=== PATIENT | male | born 1985 | race Two or more races ===

== ENCOUNTER 2024-06-02 00:16 | Emergency (ER) | payer MEDICAID, SELFPAY ==
[2024-06-02 00:16] VITALS: BMI 31.5
[2024-06-02 00:27] VITALS: BP 154/114; BP 175/114; PULSE 65; RESP 18; TEMP 36.4; O2SAT 95
--- NOTE | 2024-06-02 00:42 | EDNOTE_ITS ---
ED Dental RME/HPI General Chief complaint: Dental/Oral/Throat Stated complaint: TOOTHACHE Time Seen by Provider: 06/02/24 00:32 Arrival date/time: 06/02/24 00:16 This is a 38-year-old male that comes in with complaints of tooth pain to the right upper jaw. Patient states that he supposed to see a dentist but has still not gone. Patient reports that he will make an appointment this week. Patient also complains of mild right-sided facial swelling. Patient denies any past medical history. Related Data Previous Rx's ?Medication ?Instructions ?Recorded azithromycin 250 mg tablet See Rx Instructions PO .COMPLEX #6 05/29/22 (Zithromax) tabs amoxicillin 875 mg-potassium 1 tab PO BID #14 tabs 06/02/24 clavulanate 125 mg tablet ibuprofen 800 mg tablet 800 mg PO Q6H PRN pain #20 tabs 06/02/24 Allergies Allergy/AdvReac Type Severity Reaction Status Date / Time No Known Allergies Allergy Verified 07/04/21 08:31 Review of Systems Review of Systems Systems Reviewed: All systems reviewed, normal except as documented Past Medical History Past Medical History CARDIAC: Positive Hypercholesterolemia; Negative Cardiac Disorders or Congestive Heart Failure RESPIRATORY: Negative Chronic Obstructive Pulmonary Disease (COPD) or Asthma GENITOURINARY: Negative Renal Disease ENDOCRINE: Negative Diabetes Mellitus Type 1 or Diabetes Mellitus Type 2 HEMATOLOGIC: Negative Sickle Cell Disease Social History SMOKING STATUS: Never smoker ED Exam General General appearance: Present alert and in no apparent distress Head Head exam: Present atraumatic Eye Eye exam: Present normal appearance, PERRL and EOMI ENT ENT exam: Present mucous membranes moist and other (Mild right-sided facial swelling) Neck Neck exam: Present normal inspection, full ROM and trachea midline Chest Chest inspection: Present normal inspection and symmetric chest wall rise Respiratory Respiratory exam: Present normal lung sounds bilaterally Cardiovascular Cardiovascular exam: Present regular rate and normal rhythm Abdominal Exam Abdominal exam: Present soft Extremities Exam Extremities exam: Present normal inspection and full ROM Back Exam Back exam: Present normal inspection and full ROM Neurological Exam Neurological exam: Present alert, oriented X3 and CN II-XII intact Psychiatric Psychiatric exam: Present normal affect and normal mood Skin Skin exam: Present warm, dry, intact and normal color Course Quality Measures none Orders Category Date Time Status Amoxicillin/Pot Clav 875 [Augmentin 875] Med 06/02/24 00:41 Discontinued 1 tab PO X1 ONE HYDROcodone*/APAP 5/325 [[place] 5/325] Med 06/02/24 00:41 Discontinued 2 tab PO X1 ONE Ibuprofen Tab [Motrin Tab] Med 06/02/24 00:41 Discontinued 800 mg PO X1 ONE Vital Signs Vital signs: Vital Signs Temperature 97.6 F 06/02/24 00:27 Pulse Rate 65 06/02/24 00:27 Respiratory Rate 18 06/02/24 00:27 Blood Pressure 175/114 H 06/02/24 00:27 Pulse Oximetry (%) 95 06/02/24 00:27 Oxygen Delivery Method Room Air 06/02/24 00:27 Dental / Oral MDM Narrative MDM Narrative:: Will treat patient for cellulitis. Patient given a dose of Augmentin. Patient also given a dose of ibuprofen and [place]. Patient told to follow-up with dentist. Come back to the emergency room if symptoms change or worsen. Patient data External records reviewed:: [facility] previous records Clinical information provided by:: patient Social determinants that could affect healthcare access:: none Patient has the following chronic illnesses:: None How is presenting disease/condition affected by chronic disease/condition?: no chronic disease Evaluation data The following diagnostics were reviewed and interpreted by me:: other (specify) (None) Lab and/or radiology exams considered but not ordered:: None Interpretation Summary: n/a Medications / Prescriptions Medications or Prescriptions considered but not ordered:: None Medication administrations:: Medication Administration History Discontinued Medications Hydrocodone Bitart/Acetaminophen (Hydrocodone/Apap 5/325 Tablet) 2 tab PO X1 ONE Stop: 06/02/24 00:42 Last Admin: 06/02/24 00:53 Dose: 2 tab Documented By: STEVE Amoxicillin/Clavulanate Potassium (Amoxicillin/Pot Clav 875 Tablet) 1 tab PO X1 ONE Stop: 06/02/24 00:42 Last Admin: 06/02/24 00:53 Dose: 1 tab Documented By: STEVE Ibuprofen (Ibuprofen Tab 400 Mg Tablet) 800 mg PO X1 ONE Stop: 06/02/24 00:42 Last Admin: 06/02/24 00:50 Dose: 800 mg Documented By: STEVE Seeing mar Consultations Consultation(s) initiated? (list below): No Diagnosis Most likely diagnosis given after review of the tests above:: Cellulitis versus early abscess Admission Indicated Admission indicated?: not indicated Admission Request Was there a request for admission?: No Disposition Plan Disposition Plan: Discharge Discharge Attestation Discharge Attestation: The patient and all family members were given an opportunity to ask questions and understood the discharge instructions. Discharge instructions specifically effects, indications for sooner follow up or return to the emergency department, and the expected course of current diagnosis. Patient condition: Stable Discharge Plan Plan Patient Disposition: HOME (Self Care) Patient condition on transfer: Stable Prescriptions/Referrals Prescriptions/Med Rec: New amoxicillin-pot clavulanate 875-125 mg tablet 1 tab PO BID Qty: 14 0RF ibuprofen 800 mg tablet 800 mg PO Q6H PRN (Reason: pain) Qty: 20 0RF No Action azithromycin [Zithromax] 250 mg tablet See Rx Instructions .ROUTE .COMPLEX Qty: 6 0RF Rx Instructions: For 250 mg dose pack: take 500 mg today (day 1), then 250 mg for 4 days (days 2-5) Problem List Clinical Impression: Cellulitis, Toothache Patient/Caregiver Discharge Instructions Discharge Activity: activity as tolerated Education Materials: ED Cellulitis, ED Dental Pain Additional Instructions: Follow up with primary provider in 1-2 days. Come back to ED if symptoms change or worsen. Please make appointment with dentist. Print Language: [place] Island[place] Stand Alone Forms: Isabel Award Info., Patient Portal Info Letter PA/CLOTH WINDER Supervising Physician DEVORAH/TONIO Supervising Physician: ciaran
[2024-06-02] MEDS: IBUPROFEN TAB 400 MG TABLET 800 MG PO (00:50)
[2024-06-02] MEDS: HYDROcodone/APAP 5/325 TABLET 2 TAB PO (00:53)
[2024-06-02] MEDS: AMOXICILLIN/POT CLAV 875 TABLET 1 TAB PO (00:53)
== END 2024-06-02 01:27 | disposition home or self-care (01) ==
LOC: SERX 01:26
PROVIDERS: Emergency Provider Emergency Medicine; PCP Nurse Practitioner Family
DX: K08.89 Other specified disorders of teeth and supporting structures (principal); L03.211 Cellulitis of face
CPT/HCPCS: 99283; A9270

== ENCOUNTER 2024-06-14 00:58 | Emergency (ER) | payer MEDICAID, SELFPAY ==
[2024-06-14 00:59] VITALS: BMI 32.5
[2024-06-14 01:16] VITALS: BP 155/96; PULSE 80; RESP 20; TEMP 36.8; O2SAT 99
[2024-06-14 01:32] VITALS: BP 155/96; PULSE 80
[2024-06-14] MEDS: cloNIDine HCL 0.1 MG TABLET PO (01:32)
[2024-06-14] MEDS: ACETAMINOPHEN 500 MG TABLET 1000 MG PO (01:32)
--- NOTE | 2024-06-14 01:38 | PD.EDHA ---
ED Headache RME/HPI General Chief Complaint: Headache Stated Complaint: HEADACHE, DIZZY, BP HIGH Time Seen by Provider: 06/14/24 01:26 Source: patient Arrival date/time: 06/14/24 00:58 38-year-old male with no known medical history presents to the emergency room with a chief complaint of headache, lightheadedness, body aches and fatigue x 1 day Mode of arrival: ambulatory Limitations: no limitations Related Data Previous Rx's ?Medication ?Instructions ?Recorded azithromycin 250 mg tablet See Rx Instructions PO .COMPLEX #6 05/29/22 (Zithromax) tabs amoxicillin 875 mg-potassium 1 tab PO BID #14 tabs 06/02/24 clavulanate 125 mg tablet ibuprofen 800 mg tablet 800 mg PO Q6H PRN pain #20 tabs 06/02/24 Allergies Allergy/AdvReac Type Severity Reaction Status Date / Time No Known Allergies Allergy Verified 07/04/21 08:31 Review of Systems Review of Systems Systems Reviewed: All systems reviewed, normal except as documented Constitutional Constitutional: Reports system reviewed and no additional complaints, except as documented, Reports fatigue, Denies fever(s), Reports headache(s) and Reports weakness Eyes Eyes: Reports system reviewed and no additional complaints, except as documented, Denies blurry vision and Denies change in vision ENT Ears, Nose, Mouth, and Throat: Reports system reviewed and no additional complaints, except as documented, Denies otalgia, Reports headache(s), Reports nasal congestion, Denies throat swelling and Denies vertigo Cardiovascular Cardiovascular: Reports system reviewed and no additional complaints, except as documented, Denies chest pain, Denies dyspnea and Denies dyspnea on exertion Respiratory Respiratory: Reports system reviewed and no additional complaints, except as documented, Reports chest congestion, Reports cough, Denies dyspnea, Denies dyspnea on exertion and Denies wheezing Gastrointestinal Gastrointestinal: Reports system reviewed and no additional complaints, except as documented, Denies abdominal pain, Denies cramping, Denies nausea and Denies vomiting Genitourinary Genitourinary: Reports system reviewed and no additional complaints, except as documented, Denies dysuria and Denies hematuria Musculoskeletal Musculoskeletal: Reports system reviewed and no additional complaints, except as documented and Denies back pain Integumentary/Breasts Skin/Breast: Reports system reviewed and no additional complaints, except as documented and Denies wounds Neurologic Neurologic: Reports system reviewed and no additional complaints, except as documented, Denies confusion, Reports headache(s), Denies lack of coordination, Denies vertigo and Reports weakness Psychiatric Psychiatric: Reports system reviewed and no additional complaints, except as documented, Denies anxiety, Denies confusion, Denies depression, Denies paranoia, Denies suicidal ideation and Denies tactile hallucinations Endocrine Endocrine: Reports system reviewed and no additional complaints, except as documented and Reports fatigue Hematologic/Lymphatic Hematologic/Lymphatic: Reports system reviewed and no additional complaints, except as documented and Denies lymphadenopathy Allergic/Immunologic Allergic/Immunologic: Reports system reviewed and no additional complaints, except as documented, Denies throat swelling, Denies urticaria and Denies wheezing Past Medical History Past Medical History CARDIAC: Positive Hypercholesterolemia; Negative Cardiac Disorders or Congestive Heart Failure RESPIRATORY: Negative Chronic Obstructive Pulmonary Disease (COPD) or Asthma GENITOURINARY: Negative Renal Disease ENDOCRINE: Negative Diabetes Mellitus Type 1 or Diabetes Mellitus Type 2 HEMATOLOGIC: Negative Sickle Cell Disease Social History SMOKING STATUS: Never smoker ED Exam General Limitations: Present no limitations General appearance: Present alert and in no apparent distress Head Head exam: Present atraumatic Eye Eye exam: Present normal appearance, PERRL and EOMI ENT ENT exam: Present normal exam, normal oropharynx and mucous membranes moist Neck Neck exam: Present normal inspection, full ROM and trachea midline Chest Chest inspection: Present normal inspection and symmetric chest wall rise Respiratory Respiratory exam: Present normal lung sounds bilaterally; Absent respiratory distress, wheezes, stridor, accessory muscle use or prolonged expiratory phase Cardiovascular Cardiovascular exam: Present regular rate, normal rhythm and normal heart sounds Abdominal Exam Abdominal exam: Present soft and normal bowel sounds Extremities Exam Extremities exam: Present normal inspection and full ROM Back Exam Back exam: Present normal inspection and full ROM Neurological Exam Neurological exam: Present alert, oriented X3 and CN II-XII intact Psychiatric Psychiatric exam: Present normal affect and normal mood Skin Skin exam: Present warm, dry, intact and normal color Course Quality Measures none Orders Category Date Time Status Bedside COVID-19 Antigen Test NOW Care 06/14/24 01:25 Completed Bedside Influenza A&B Antigen Test NOW Care 06/14/24 01:25 Completed Acetaminophen Tab [Tylenol ES Tab] Med 06/14/24 01:25 Discontinued 1,000 mg PO X1 ONE cloNIDine HCL [Catapres] Med 06/14/24 01:26 Discontinued 0.1 mg PO X1 ONE Vital Signs Vital signs: Vital Signs Temperature 98.2 F 06/14/24 01:16 Pulse Rate 80 06/14/24 01:16 Respiratory Rate 20 06/14/24 01:16 Blood Pressure 155/96 H 06/14/24 01:16 Pulse Oximetry (%) 99 06/14/24 01:16 Oxygen Delivery Method Room Air 06/14/24 01:16 O2 saturation 99% within normal limits Headache MDM Narrative MDM Narrative:: 38-year-old male with no known medical history presents to the emergency room with a chief complaint of headache, lightheadedness, body aches and fatigue x 1 day clinically the patient appears nontoxic and in no apparent distress. Physical examination shows clear bilateral lung sounds with no wheezing stridor or respiratory distress. The patient is currently afebrile and is complaining of bodyaches. Influenza A and COVID-19 test were completed and the patient tested positive for influenza A. Patient eloped prior to final disposition Patient data External records reviewed:: [facility] previous records Clinical information provided by:: patient Social determinants that could affect healthcare access:: none Patient has the following chronic illnesses:: No chronic illness How is presenting disease/condition affected by chronic disease/condition?: no chronic disease Evaluation data The following diagnostics were reviewed and interpreted by me:: lab results and radiology exam(s) Lab and/or radiology exams considered but not ordered:: Labs and radiology exams considered and ordered Interpretation Summary: N/A Medications / Prescriptions Medications or Prescriptions considered but not ordered:: Medication given Medication administrations:: Medication Administration History Discontinued Medications Acetaminophen (Acetaminophen 500 Mg Tablet) 1,000 mg PO X1 ONE Stop: 06/14/24 01:26 Last Admin: 06/14/24 01:32 Dose: 1,000 mg Documented By: OA Clonidine (Clonidine Hcl 0.1 Mg Tablet) 0.1 mg PO X1 ONE Stop: 06/14/24 01:27 Last Admin: 06/14/24 01:32 Dose: 0.1 mg Documented By: OA Medication given Consultations Consultation(s) initiated? (list below): No Diagnosis Differential diagnosis headache: migraine, tension headache and other (Influenza/COVID-19/upper respiratory infection) Most likely diagnosis given after review of the tests above:: Influenza A Admission Indicated Admission indicated?: not indicated Admission Request Was there a request for admission?: No Disposition Plan Disposition Plan: Discharge Discharge Attestation Discharge Attestation: The patient and all family members were given an opportunity to ask questions and understood the discharge instructions. Discharge instructions specifically effects, indications for sooner follow up or return to the emergency department, and the expected course of current diagnosis. Patient condition: Stable Discharge Plan Plan Patient Disposition: Elopement Disposition Comment: Stable Prescriptions/Referrals Prescriptions/Med Rec: No Action azithromycin [Zithromax] 250 mg tablet See Rx Instructions .ROUTE .COMPLEX Qty: 6 0RF Rx Instructions: For 250 mg dose pack: take 500 mg today (day 1), then 250 mg for 4 days (days 2-5) amoxicillin-pot clavulanate 875-125 mg tablet 1 tab PO BID Qty: 14 0RF ibuprofen 800 mg tablet 800 mg PO Q6H PRN (Reason: pain) Qty: 20 0RF Referrals: No Primary/Family,Physician [Primary Care Provider] - In 1 week Problem List Clinical Impression: Influenza A Patient/Caregiver Discharge Instructions Education Materials: ED Influenza (Adult) Print Language: Filipino PA/POST MANAGER Supervising Physician PA/POST MANAGER Supervising Physician: Dr Saeed
--- NOTE | 2024-06-14 01:51 | PC.NURSE ---
PT WALKED OUT AND LEFT AFTER BEING TOLD WAS FLU POSITIVE
== END 2024-06-14 01:46 | disposition left against medical advice (07) ==
LOC: SERX 02:32
PROVIDERS: Emergency Provider Emergency Medicine
DX: J10.1 Influenza due to other identified influenza virus with other respiratory manifestations (principal)
CPT/HCPCS: 87400; 87811; 99283; A9270

== ENCOUNTER → 2024-08-04 | Outpatient (CLI) | payer MEDICAID, SELFPAY ==
--- NOTE | 2024-08-04 17:14 | XR_ITS ---
Examination: CT brain head with intravenous contrast. 2-D sagittal reconstructions. 2-D coronal reconstructions. Date and time of exam:August 04, 2024 0633 hrs. Indications: Generalized tic disorder CTDI: vol (mGy): 53.1 DLP: (mGycm):1104 Technique: Axial sections of the brain have been obtained. 5 mm slice thickness images have been obtained. Intravenous contrast material has not been administered. Low dose protocols were performed. One or more of the following dose reduction techniques were used; automated exposure control, adjustment of the mA and/or KV according to patient size, use of iterative reconstruction technique. Findings: Ventricles normal size and configuration No mass effect upon the ventricular system Fourth ventricle midline No abnormal enhancing cerebellar or cerebral lesions Cranial vault intact Impression: Negative for acute hemorrhage mass effect or midline shift No abnormal enhancing cerebellar or cerebral lesions
== END | disposition home or self-care (01) ==
PROVIDERS: Referring Provider Student in an Organized Health Care Education/Training Program; Visit Provider Student in an Organized Health Care Education/Training Program
DX: F95.9 Tic disorder, unspecified (principal)
CPT/HCPCS: 70460; A4649; Q9967

== ENCOUNTER 2024-11-07 09:30 | Emergency (ER) | payer MEDICAID, SELFPAY ==
[2024-11-07 09:40] VITALS: BP 130/87; PULSE 66; RESP 17; TEMP 36.8; O2SAT 97; BMI 35.6
--- NOTE | 2024-11-07 09:49 | XR_ITS ---
Examination: CT abdomen and pelvis without contrast. Coronal 3-D reconstructions. Sagittal 2-D reconstructions. Date and time of exam:November 07, 2024 0957 hours Comparison April 06, 2022 INDICATIONS: Abdominal pain epigastric pain beginning 2 days ago CTDI: vol (mGy): 11.7 DLP: (mGycm): 782 Technique: Axial images of the abdomen have been obtained, 3 mm slice thickness Intravenous contrast material has not been administered. Low dose protocols were performed. One or more of the following dose reduction techniques were used; automated exposure control, adjustment of the mA and/or KV according to patient size, use of iterative reconstruction technique. Findings: Diffuse fatty infiltration throughout the liver No focal liver or splenic lesion No gallstones No pancreatic or adrenal mass No renal or ureteral calculi, no hydronephrosis Normal appendix No bowel obstruction Colonic diverticulosis, no diverticulitis Normal seminal vesicles No prostatomegaly Contracted urinary bladder Bilateral fat-containing inguinal hernias Intact osseous structures IMPRESSION: Diffuse fatty infiltration throughout the liver No renal or ureteral calculi, no hydronephrosis Normal appendix Colonic diverticulosis, no diverticulitis Bilateral fat-containing inguinal hernias
--- NOTE | 2024-11-07 09:50 | EDNOTE_ITS ---
ED Abdominal Pain RME/HPI General Chief Complaint: Abdominal Pain Stated complaint: Abdominal pain, on antibiotics for strep Time seen by provider: 11/07/24 09:46 Arrival date/time: 11/07/24 09:30 This is a case of a 39-year-old male who came in in the emergency room due to abdominal pain nausea vomiting for 4 days patient was started on clindamycin for strep throat and started to have abdominal pain due to persistence of the symptoms this patient decided to start consult here in the emergency room Limitations: no limitations Related Data Previous Rx's ?Medication ?Instructions ?Recorded azithromycin 250 mg tablet See Rx Instructions PO .COM PLEX #6 05/29/22 (Zithromax) tabs amoxicillin 875 mg-potassium 1 tab PO BID #14 tabs 11/19 clavulanate 125 mg tablet ibuprofen 800 mg tablet 800 mg PO Q6H PRN pain #20 t abs 06/02/24 amoxicillin 875 mg-potassium 1 tab PO Q12H 10 days #20 tabs 11/07/24 clavulanate 125 mg tablet famotidine 20 mg tablet 20 mg PO BID #60 tabs omeprazole 40 mg capsule,delayed 40 mg PO QDAY #30 cap s 11/07/24 release ondansetron 4 mg disintegrating 4 mg PO Q8H PRN nausea and 11/07/24 tablet vomiting #20 tabs Allergies Allergy/AdvReac Type Severity Reaction Status Date / Time No Known Allergies Allergy Verified 11/07/24 09:37 Review of Systems Review of Systems Systems Reviewed: All systems reviewed, normal except as documented Constitutional Constitutional: Reports system reviewed and no additional complaints, except as documented and Reports as per HPI ENT Ears, Nose, Mouth, and Throat: Denies dysphagia and Denies odynophagia Cardiovascular Cardiovascular: Reports system reviewed and no additional complaints, except as documented, Reports as per HPI and Denies dyspnea Respiratory Respiratory: Reports system reviewed and no additional complaints, except as documented, Reports as per HPI, Denies chest congestion, Denies cough and Denies dyspnea Gastrointestinal Gastrointestinal: Reports system reviewed and no additional complaints, except as documented, Reports as per HPI, Reports abdominal pain, Denies belching, Denies bloating, Denies change in bowel habits, Denies change in stool character, Denies coffee ground emesis, Denies constipation, Denies cramping, Denies diarrhea, Denies dyspepsia, Denies dysphagia, Denies early satiety, Denies excessive flatus, Denies fecal incontinence, Denies heartburn, Denies hematemesis, Denies hematochezia, Denies loose stools, Denies melena, Reports nausea, Denies odynophagia, Reports tenesmus and Reports vomiting Genitourinary Genitourinary: Reports system reviewed and no additional complaints, except as documented and Reports as per HPI Neurologic Neurologic: Reports system reviewed and no additional complaints, except as documented and Reports as per HPI Past Medical History Past Medical History CARDIAC: Positive Hypercholesterolemia; Negative Cardiac Disorders or Congestive Heart Failure RESPIRATORY: Negative Chronic Obstructive Pulmonary Disease (COPD) or Asthma GENITOURINARY: Negative Renal Disease ENDOCRINE: Negative Diabetes Mellitus Type 1 or Diabetes Mellitus Type 2 HEMATOLOGIC: Negative Sickle Cell Disease Social History SMOKING STATUS: Never smoker ED Exam General Limitations: Present no limitations General appearance: Present alert and in no apparent distress; Absent appears intoxicated, anxious, lethargic, obtunded or in distress Head Head exam: Present atraumatic, normocephalic and normal inspection Eye Eye exam: Present normal appearance, PERRL and EOMI; Absent scleral icterus, conjunctival injection, nystagmus or miosis ENT ENT exam: Present normal exam, normal oropharynx and mucous membranes moist Neck Neck exam: Present normal inspection, full ROM and trachea midline; Absent tenderness, meningismus, lymphadenopathy or thyromegaly Chest Chest inspection: Present normal inspection and symmetric chest wall rise; Absent tenderness, rash or abscess Respiratory Respiratory exam: Present normal lung sounds bilaterally; Absent respiratory distress, wheezes, stridor, accessory muscle use or prolonged expiratory phase Cardiovascular Cardiovascular exam: Present regular rate, normal rhythm and normal heart sounds; Absent bradycardia, tachycardia, irregular rhythm, systolic murmur or diastolic murmur Abdominal Exam Abdominal exam: Present soft, tenderness (Mild tenderness in the epigastric area) and normal bowel sounds; Absent distention, guarding, rebound, rigidity, diminished bowel sounds, hyperactive bowel sounds, hypoactive bowel sounds, organomegaly, trauma, incision, psoas sign, obturator sign, heel tap sign, Law's sign, Rovsing's sign, tenderness at McBurney's Point, ascites, mass, bruit, pulsatile mass, hernia or scar Abdominal tenderness: Present epigastrium and mild Extremities Exam Extremities exam: Present normal inspection and full ROM Back Exam Back exam: Present normal inspection and full ROM Neurological Exam Neurological exam: Present alert, oriented X3, CN II-XII intact, normal gait and reflexes normal; Absent motor sensory deficit Psychiatric Psychiatric exam: Present normal affect and normal mood Skin Skin exam: Present warm, dry, intact and normal color Course Quality Measures none Orders Category Date Time Status Bedside COVID-19 Antigen Test NOW Care 11/07/24 11:24 Active Bedside Influenza A&B Antigen Test NOW Care 11/07/24 11:[address] abdomen pelvis wo con Stat Exams 11/07/24 09:49 Completed CBC Stat Lab 11/07/24 10:14 Completed Comprehensive Metabolic Panel Stat Lab 11/07/24 10:14 Completed Lipase Stat Lab 11/07/24 10:14 Completed Urinalysis Stat Lab 11/07/24 10:24 Completed Famotidine [Pepcid] Med 11/07/24 11:34 Discontinued 40 mg PO X1 ONE Lidocaine 2% Viscous [Xylocaine 2% Viscous] Med 11/07/24 11:33 Discontinued 15 ml PO X1 ONE Ondansetron Odt [Zofran Odt] Med 11/07/24 11:33 Discontinued 4 mg PO X1 ONE mg Hyd/Al Hyd/Grace Susp [Maalox Susp] Med 11/07/24 11:33 Discontinued 30 ml PO X1 ONE Vital Signs Vital signs: Vital Signs Temperature 98.2 F 11/07/24 09:40 Pulse Rate 66 11/07/24 09:40 Respiratory Rate 17 11/07/24 09:40 Blood Pressure 130/87 H 11/07/24 09:40 Pulse Oximetry (%) 97 11/07/24 09:40 Oxygen Delivery Method Room Air 11/07/24 09:40 Patient is afebrile nontachycardic nontachypneic blood pressure stable not hypoxic oxygen saturation is 97% in room air Abdominal Pain MDM MDM Narrative MDM Narrative:: This is a case of a 39-year-old male who came in in the emergency room due to abdominal pain nausea vomiting for 4 days patient was started on clindamycin for strep throat and started to have abdominal pain due to persistence of the symptoms this patient decided to start consult here in the emergency room physical examination patient is awake alert oriented not in distress nontoxic looking physical examination patient is awake alert oriented not in distress not toxic looking patient is afebrile not tachycardic not tachypneic not hypoxic patient excellent skin turgor well-hydrated well-nourished lung sounds clear no crackles no rales no retraction no stridor heart normal rate regular rhythm no murmur abdominal exam is benign nonsurgical no guarding no rebound no rigidity mild tenderness in the epigastric area negative psoas negative straight or negative Rovsing's negative McBurney's negative Law sign negative CVA tenderness blood test showed no leukocytosis no anemia kidney and liver function is normal no electrolyte imbalance urinalysis is normal patient noted glucose 249 he will continue and to see his primary care physician possible start of medication for diabetes and continue to monitor the blood sugar twice a day and if his blood sugar greater than 250 or becomes symptomatic standing he needs to return in the emergency room immediately patient CT scan showed fatty liver diverticulosis and inguinal hernia at the time of exam patient symptoms suggestive of gastritis this is possible due to he was advised to stop the clindamycin and start Augmentin which should cover his strep throat skin infection and his diverticulosis patient will prescribe also with Pepcid and omeprazole for gastritis and he will also discharged with Zofran as needed for vomiting modified diet is also advised Patient was discharged with comfortable condition walking with stable gait. Patient verbalized no further complains explained diagnosis and answered patient question. Patient is comfortable with the proposed management plan including the need to follow up with his/her primary care physician and any specialist if applicable Discussed patient for any urgent condition or worsening sx, He/She needed to go to emergency room immediately or call 911. Patient acknowledge the responsibility to follow up as instructed and to monitor her/his symptoms. For any persistence of the symptoms for more than 3-5 days return precaution advised. Discussed the result of the test and was given printed discharge instruction Patient data External records reviewed:: [facility] previous records Clinical information provided by:: patient Social determinants that could affect healthcare access:: none Patient has the following chronic illnesses:: none How is presenting disease/condition affected by chronic disease/condition?: no chronic disease Evaluation data The following diagnostics were reviewed and interpreted by me:: lab results and radiology exam(s) Lab and/or radiology exams considered but not ordered:: Reviewed Interpretation Summary: Reviewed Medications / Prescriptions Medications or Prescriptions considered but not ordered:: Given Medication administrations:: Medication Administration History Discontinued Medications Al Hydrox/Mg Hydrox/Simethicone (Mg Hyd/Al Hyd/Grace (Maalox Reg) Susp 30 Ml Udc) 30 ml PO X1 ONE Stop: 11/07/24 11:34 Last Admin: 11/07/24 11:45 Dose: 30 ml Documented By: OA Famotidine (Famotidine 20 Mg Tablet) 40 mg PO X1 ONE Stop: 11/07/24 11:35 Last Admin: 11/07/24 11:44 Dose: 40 mg Documented By: OA Lidocaine HCl (Lidocaine Viscous 2% 15 Ml Udc) 15 ml PO X1 ONE Stop: 11/07/24 11:34 Last Admin: 11/07/24 11:45 Dose: 15 ml Documented By: OA Ondansetron HCl (Ondansetron Odt 4 Mg Tabrap) 4 mg PO X1 ONE; Protocol Stop: 11/07/24 11:34 Last Admin: 11/07/24 11:45 Dose: 4 mg Documented By: OA Reviewed Consultations Consultation(s) initiated? (list below): No Diagnosis Differential diagnosis abdominal pain: abdominal pain, acute appendicitis, calculus of kidney, diverticulitis and endometriosis Most likely diagnosis given after review of the tests above:: gastritis Admission Indicated Admission indicated?: not indicated Explain why admission is indicated or not indicated:: not indicated Admission Request Was there a request for admission?: No Admission Attestation Admission request attestation: not indicated Disposition Plan Disposition Plan: Discharge Discharge Attestation Discharge Attestation: The patient and all family members were given an opportunity to ask questions and understood the discharge instructions. Discharge instructions specifically effects, indications for sooner follow up or return to the emergency department, and the expected course of current diagnosis. Patient condition: Stable Discharge Plan Plan Patient Disposition: HOME (Self Care) Patient condition on transfer: Stable Prescriptions/Referrals Prescriptions/Med Rec: New amoxicillin-pot clavulanate 875-125 mg tablet 1 tab PO Q12H 10 Days Qty: 20 0RF ondansetron 4 mg tablet,disintegrating 4 mg PO Q8H PRN (Reason: nausea and vomiting) Qty: 20 0RF omeprazole 40 mg capsule,delayed release(DR/EC) 40 mg PO QDAY Qty: 30 0RF famotidine 20 mg tablet 20 mg PO BID Qty: 60 0RF No Action azithromycin [Zithromax] 250 mg tablet See Rx Instructions .ROUTE .COMPLEX Qty: 6 0RF Rx Instructions: For 250 mg dose pack: take 500 mg today (day 1), then 250 mg for 4 days (days 2-5) amoxicillin-pot clavulanate 875-125 mg tablet 1 tab PO BID Qty: 14 0RF ibuprofen 800 mg tablet 800 mg PO Q6H PRN (Reason: pain) Qty: 20 0RF Referrals: Braulio Rutledge MD [Primary Care Provider] - In 1 week Problem List Clinical Impression: Abdominal pain, Gastritis, Diverticulosis, Inguinal hernia, Hyperglycemia, Fatty liver Patient/Caregiver Discharge Instructions Education Materials: Abdominal Pain, Nonalcoholic Fatty Liver ..., ED Gastritis (Adult), ED Hernia (Adult), ED Hyperglycemia New Susp Diabetes, ED Diverticulosis Additional Instructions: Follow-up with your primary care physician in 2 days for reevaluation and to be referred to a GI specialist for further evaluation and treatment of your gastritis with possible EGD and for your diverticulosis and fatty liver you also need to be referred to urologist for your bilateral inguinal hernia stop clindamycin which is the possible cause of your gastritis and start Augmentin which helped for your skin infection strep throat and for your diverticulosis you will take Augmentin twice a day for 10 days you will also start Zofran as needed for nausea vomiting we will start omeprazole and famotidine for your gastritis for any recurrence persistence worsening symptoms or any emergent concern he will call 911 or go to the nearest emergency room avoid spicy food avoid alcohol coffee soda avoid skipping of meals avoid fat fried high cholesterol food it is also important to see your primary care physician for further evaluation and treatment of your hyperglycemia and to start on medication for diabetes diabetic diet is also advised continue to monitor your blood sugar twice a day and return to the emergency room if it is greater than 250 or become symptomatic Print Language: French Stand Alone Forms: Isabel Award Info., Patient Portal Info Letter PA/TONIO Supervising Physician DEVORAH/TONIO Supervising Physician: dr au
[2024-11-07 10:28] LABS: Basophils # (Auto) 0.1 Thou/mm3 (0.0-0.2); Basophils % (Auto) 1 % (0-2.5); Eosinophils # (Auto) 0.4 Thou/mm3 (0.0-0.5); Eosinophils % (Auto) 5 % (0-10); Hematocrit 44.1 % (41.0-53.0); Hemoglobin 15.8 g/dL (13.5-16.0); Immature Granulocytes % (Auto) 1 % (0-0); Immature Granulocytes Auto 0.04 Thou/mm3 (0.00-0.00); Lymphocytes # (Auto) 2.9 Thou/mm3 (1.0-4.8); Lymphocytes % (Auto) 39 % (10-50); Mean Corpuscular HGB Conc 35.8 g/dl (31.0-37.0); Mean Corpuscular Hemoglobin 32.7 pg (25.0-35.0); Mean Corpuscular Volume 91 fL (80-100); Monocytes # (Auto) 0.9 Thou/mm3 (0.0-0.8); Monocytes % (Auto) 12 % (0-12); Neutrophils # (Auto) 3.2 Thou/mm3 (1.8-7.7); Neutrophils % (Auto) 43 % (37-80); Nucleated Red Blood Cell % 0 /100 WBC (0); Platelet Count 260 Thou/mm3 (140-440); RDW Standard Deviation 39.7 fL (35.1-43.9); Red Blood Count 4.83 Miln/mm3 (4.50-5.90); White Blood Count 7.4 Thou/mm3 (3.8-10.6)
[2024-11-07 10:40] LABS: Collection Type, Urine Clean Catch; RBC,Urine 0 /hpf (0-3); Squamous Epithelial Cell,Urine 0 /hpf (0-5); WBC,Urine 0 /hpf (0-5)
[2024-11-07 10:45] LABS: Alanine Aminotransferase 43 U/L (10-49); Albumin, Serum 4.2 gm/dL (3.5-5.0); Albumin/Globulin Ratio 1.7 (1.2-2.2); Alkaline Phosphatase 85 U/L (46-116); Anion Gap 9 (7-16); Aspartate Amino Transferase 24 U/L (0-34); BUN/Creatinine Ratio 15 Ratio (12-20); Bilirubin,Total 0.7 mg/dL (0.3-1.2); Blood Urea Nitrogen 17 mg/dL (9-23); Calcium 8.7 mg/dL (8.3-10.6); Calcium (Corrected) 8.7 mg/dL (8.5-10.1); Carbon Dioxide 27.7 mMol/L (20.0-31.0); Chloride 104 mMol/L (98-107); Creatinine (Component) 1.1 mg/dL (0.6-1.3); Estimated Creatinine Clearance 112.1 mL/min (>60); Globulin 2.5 gm/dL (2.3-3.5); Glucose 249 mg/dL (74-106); Lipase 54 U/L (12-53); Osmolality,Calculated 290 (275-295); Potassium 4.1 mMol/L (3.4-5.1); Sodium 141 mMol/L (136-145); Total Protein 6.7 gm/dL (5.7-8.2); eGFR > 60 See Note
[2024-11-07 11:17] LABS: Bilirubin,Urine Negative (Negative); Blood,Urine Negative (Negative); Clarity,Urine Clear (Clear/Hazy); Color,Urine Lt-Yellow (Lt Yel-Yel); Glucose, Urine 4+ (Negative); Ketones,Urine Negative (Negative); Leukocyte Esterase,Urine Negative (Negative); Nitrite,Urine Negative (Negative); PH,Urine 5.5 (5.0-7.0); Protein,Urine Negative (Neg - Trace); Specific Gravity,Urine 1.027 (1.001-1.035); Urobilinogen,Urine Negative mg/dL (0.0-1.0)
[2024-11-07] MEDS: FAMOTIDINE 20 MG TABLET 40 MG PO (11:44)
[2024-11-07] MEDS: MG HYD/AL HYD/SIME (Maalox Reg) SUSP 30 ML UDC PO (11:45)
[2024-11-07] MEDS: ONDANSETRON ODT 4 MG TABRAP PO (11:45)
[2024-11-07] MEDS: LIDOCAINE VISCOUS 2% 15 ML UDC PO (11:45)
== END 2024-11-07 11:57 | disposition home or self-care (01) ==
PROVIDERS: Nurse Practitioner Family; Emergency Provider Emergency Medicine; PCP Family Medicine
DX: K29.70 Gastritis, unspecified, without bleeding (principal); K57.90 Diverticulosis of intestine, part unspecified, without perforation or abscess without bleeding; K76.0 Fatty (change of) liver, not elsewhere classified; E11.65 Type 2 diabetes mellitus with hyperglycemia; K40.20 Bilateral inguinal hernia, without obstruction or gangrene, not specified as recurrent
CPT/HCPCS: 36415; 74176; 80053; 81001; 83690; 85025; 99284; J3490; Q0162; A9270